=== PATIENT | male | born 1950 | race Hispanic/Latino ===

== ENCOUNTER 2016-10-22 13:35 | Emergency (ER) | payer OTHER ==
[2016-10-22 13:42] VITALS: TEMP 98.2
--- NOTE | 2016-10-22 14:16 | ED PDOC ---
HPI: Head Injury Time Seen by Provider: 10/22/16 13:40 Chief Complaint (Nursing): Abnormal Skin Integrity Chief Complaint (Provider): Head injury History Per: Patient History/Exam Limitations: no limitations Onset/Duration Of Symptoms: Hrs Patient States: Struck With Object Additional Complaint(s): Patient is a 65 y/o male with no significant past medical history presenting to the emergency department for evaluation of head injury sustained after hitting his head against a cabinet door at 12:30 today. He presents to ED with headache rated a 7/10 in severity. He reports taking Aleve prior to arrival with some relief. Patient does not take any blood thinners. He denies loss of consciousness but states that he "saw stars" right after injury occurred. Patient was advised by his employer to come to ED for further evaluation. Minor abrasion noted to scalp, patient unaware of last tetanus. PCP: none provided Past Medical History Reviewed: Historical Data, Nursing Documentation, Vital Signs Vital Signs: Last Vital Signs Temp 98.2 F 10/22/16 13:40 Pulse 55 L 10/22/16 13:40 Resp 18 10/22/16 13:40 BP 168/107 H 10/22/16 13:40 Pulse Ox 99 10/22/16 13:40 - Medical History PMH: No Chronic Diseases Other PMH: prostate cancer - Surgical History Other surgeries: prostatectomy, cervical spine surgery - Family History Family History: States: No Known Family Hx - Living Arrangements Living Arrangements: With Family - Social History Current smoker - smoking cessation education provided: No Ex-Smoker (has not smoked in the last 12 months): No Alcohol: None Drugs: Denies - Immunization History Hx Tetanus Toxoid Vaccination: No (not sure of last booster) - Allergies Allergies/Adverse Reactions: Allergies Allergy/AdvReac Type Severity Reaction Status Date / Time No Known Allergies Allergy Verified 10/22/16 13:39 Review of Systems ROS Statement: Except As Marked, All Systems Reviewed And Found Negative Gastrointestinal: Negative for: Nausea, Vomiting Skin: Positive for: Other (scalp abrasion) Neurological: Positive for: Headache. Negative for: Dizziness Physical Exam - Reviewed Nursing Documentation Reviewed: Yes Vital Signs Reviewed: Yes - Physical Exam Appears: Positive for: Well, Non-toxic, No Acute Distress Head Exam: Positive for: NORMAL INSPECTION. Negative for: ATRAUMATIC (small abrasion to mid frontal scalp. no active bleeding) Skin: Positive for: Normal Color, Warm, Dry Eye Exam: Positive for: Normal appearance ENT: Positive for: Normal ENT Inspection Neck: Positive for: Painless ROM Cardiovascular/Chest: Positive for: Regular Rate, Rhythm Respiratory: Positive for: Normal Breath Sounds. Negative for: Accessory Muscle Use, Respiratory Distress Extremity: Positive for: Normal ROM Neurologic/Psych: Positive for: Alert, Oriented (x3) - ECG O2 Sat by Pulse Oximetry: 99 (RA) Pulse Ox Interpretation: Normal - Other Rad CT head X-Ray: Read By Radiologist X-Ray Interpretation: no bleed, NAP Medical Decision Making Medical Decision Making: Time: 13:57 Initial impression: Head injury without LOC Initial plan: Head CT scan w/o contrast Tetanus booster 0.5 mL IM Patient is aware of CT results. He was advised to continue with Tylenol for pain as needed and ice affected area. Advised follow-up with primary doctor in 2 -3 days. Patient is aware he can return to ED any time if acutely worse. Repeat BP prior to d/c is improved. Scribe Attestation: Documented by Ophelia Smith, acting as a scribe for SOM Robles. Provider Scribe Attestation: All medical record entries made by the Scribe were at my direction and personally dictated by me. I have reviewed the chart and agree that the record accurately reflects my personal performance of the history, physical exam, medical decision making, and the department course for this patient. I have also personally directed, reviewed, and agree with the discharge instructions and disposition. Disposition - Clinical Impression Clinical Impression: Scalp abrasion, Requires a booster tetanus, Head injury - Patient ED Disposition Is Patient to be Admitted: No Counseled Patient/Family Regarding: Studies Performed, Diagnosis, Need For Followup - Disposition Referrals: [facility] [Outside] Disposition: Routine/Home Disposition Time: 14:47 Condition: STABLE Additional Instructions: Keep wound clean and dry. Wash daily with soap and water. Ice affected area on scalp. Tylenol for pain as needed. Follow-up with primary doctor in 2-3 days or return to ED any time if acutely worse. Instructions: Head Injury (ED), Diphtheria/Acellular Pertussis/Tetanus Booster Vaccine (Tdap) (Injection), Abrasion (ED) Forms: [employer] ([place]ian)
--- NOTE | 2016-10-22 14:40 | CT ---
PROCEDURE: CT HEAD WITHOUT CONTRAST. HISTORY: trauma COMPARISON: None available. TECHNIQUE: Axial computed tomography images were obtained through the head/brain without intravenous contrast. Radiation dose: Total exam DLP = 887.11 mGy-cm. This CT exam was performed using one or more of the following dose reduction techniques: Automated exposure control, adjustment of the mA and/or kV according to patient size, and/or use of iterative reconstruction technique. FINDINGS: HEMORRHAGE: No intracranial hemorrhage. BRAIN: No mass effect or edema. No atrophy or chronic microvascular ischemic changes. VENTRICLES: Unremarkable. No hydrocephalus. CALVARIUM: Unremarkable. PARANASAL SINUSES: Unremarkable as visualized. No significant inflammatory changes. MASTOID AIR CELLS: Unremarkable as visualized. No inflammatory changes. OTHER FINDINGS: None. IMPRESSION: Normal CT of the Head. No intracranial hemorrhage.
[2016-10-22 14:55] VITALS: BP 148/90; PULSE 62; RESP 14; O2SAT 100
== END 2016-10-22 14:55 | disposition home or self-care (01) ==
LOC: H.ER 13:35
DX: S00.01XA Abrasion of scalp, initial encounter (principal); S09.90XA Unspecified injury of head, initial encounter; W22.8XXA Striking against or struck by other objects, initial encounter; Y99.0 Civilian activity done for income or pay; Z85.46 Personal history of malignant neoplasm of prostate